=== PATIENT | male | born 1950 | race Caucasian/White ===

== ENCOUNTER 2018-10-23 15:03 | Emergency (ER) | payer OTHER, MEDICARE ==
[~2018-10-23] VITALS: Ht 172.7 cm; Wt 74.4 kg
== END 2018-10-23 16:03 | disposition home or self-care (01) ==
LOC: ED 15:03
DX: H73.891 Other specified disorders of tympanic membrane, right ear (principal); W22.8XXA Striking against or struck by other objects, initial encounter; Y93.89 Activity, other specified; Y92.89 Other specified places as the place of occurrence of the external cause; Y99.8 Other external cause status